=== PATIENT | female | born 1970 | race Caucasian/White ===

== ENCOUNTER 2019-06-30 00:32 | Day surgery (SDC) | payer OTHER, SELFPAY ==
[2019-06-13 13:32] VITALS: BMI 30.2
[2019-06-30] VITALS (7 sets, daily range): BP systolic 116–139; BP diastolic 77–84; PULSE 77–113; RESP 14–18; TEMP 36.2–36.6; O2SAT 95–99
--- NOTE | ~2019-06-30 | XR_ITS ---
EXAMINATION: XR hand LT min 3V DATE: 06/30/2019 09:35 INDICATION: Postoperative evaluation following surgery to the left first carpal metacarpal joint TECHNIQUE: Posteroanterior, oblique and lateral views of the left hand were obtained. COMPARISON: 04/21/2019 FINDINGS: Fiberglas splinting material along the radial side of the hand, wrist and distal forearm which obscur es fine bone and soft tissue detail. Interval resection of the trapezium likely for first carpometaca rpal suspension arthroplasty. No fracture. Alignment remains near-anatomic. Mild to moderate osteoart hritis at the remaining portion of the triscaphe joint. Additional mild osteoarthritis at several of the distal interphalangeal joints. IMPRESSION: 1. Expected appearance post left first carpal metacarpal suspension arthroplasty with trapezium resec tion. Reviewed, dictated and finalized at location A. WEB DEVELOPER IMPRESSION: 1. Expected appearance post left first carpal metacarpal suspension arthroplast y with trapezium resection.
[2019-06-30] MEDS: LACTATED RINGERS 1,000 ML 30 ML IV CONT ×2 (06:30→09:19)
--- NOTE | 2019-06-30 07:01 | P.PNAN_ITS ---
Anes - Initial Pre Proc Eval Procedure: Operation Date: 06/30/19 07:30 Proposed Procedures p Carpal Metacarpal Arthroplasty Left Thumb - Trevor Santos MD Date/Time: 06/30/19 07:01 Surgeon: Trevor Santos MD Pre Op Diagnosis: Thumb CMC arthritis left side Patient Data Age: 48 Gender: F Height: 5 ft 1 in Weight: 72.57 kg Allergies Allergy/AdvReac Type Severity Reaction Status Date / Time No Known Allergies Allergy Verified 06/13/19 13:31 Home Medications Medication Instructions Recorded Confirmed Type citalopram 20 mg tablet 20 mg PO DAILY 03/22/19 06/13/19 History fluticasone propionate 50 2 spray NASAL DAILY PRN 03/22/19 06/13/19 History mcg/actuation nasal spray,suspension solifenacin 5 mg tablet 5 mg PO DAILY 03/22/19 06/13/19 History ibuprofen [Motrin IB] 200 mg PO Q6H PRN 06/13/19 06/13/19 History Patient hx anesthesia problems: none Family hx anesthesia problems: none PMFSH Past Medical History Medical History Arthritis Depression Osteoarthritis Surgical History Surgical History H/O gynecological procedure Family History Family History Father Patient's father is in good health Grandparent Family history of malignant neoplasm of breast, Onset Age: 84 Diabetes mellitus Mother Family history of lupus erythematosus Social History Social History Smoking status: Never smoker Second hand tobacco smoke exposure: No Alcohol intake: current Gender identity (if verbalized by the patient): Female Anes - Eval Final PreProcedure Day of Procedure 06/30/19 07:01 Patient weight: overweight Heart: regular rate and rhythm Lungs: clear to auscultation Airway: Mallampati scale class II Neurological: alert and oriented Last oral intake: >/= 8 hours ASA classification: II Emergent: no Anesthetic plan: proceed Anesthesia type and monitoring: general LMA and standard monitoring Other findings: recent svt Informed Consent: The patient's anesthetic plan and its attendant risks and miguel efits were discussed with the patient/family/POA. Questions were solicited and answers provided to the satisfaction of the patient/family/POA.
--- NOTE | 2019-06-30 07:07 | WPDHPUPDATE1 ---
History and Physical Update Update Date/Time: 06/30/19 07:07 History and Physical has been reviewed, including an updated exam of the patient. There are NO changes in the patient's condition. Risks, benefits, and alternatives have been discussed and questions answered. Patient agrees to proceed with procedure.
[2019-06-30] MEDS: ceFAZolin 2 GM/D5W 50 ML 2 GM/50 ML BAG IVPB (07:37)
--- NOTE | 2019-06-30 07:41 | WPDANESPNB ---
Anes - Peripheral Nerve Block Date/Time: 06/30/19 07:41 I have discussed with the patient/family/POA the placement of a peripheral nerve block for post-operative pain management, including associated risks, benefits, complications, and side effects. Alternative methods of post-operative analgesia were detailed. Questions were solicited and answers provided to the satisfaction of the patient/family/POA. Time-Out: A pre-procedural Time-Out was completed immediately before starting the procedure and confirmed: Patient Identification, Site, Procedure, Patient Position and the Availability of Requisite Equipment. Clinical Indications: Acute post-operative pain management requested by the operative surgeon. Nerve Block Insertion Note Anes-nerve block: supraclavicular left Needle: 22 gauge, stimulating, insulated echogenic needle. Needle length: 50 mm Technique: nerve stimulation lost at (mA) (0.3) and ultrasound Injectate: bupivacaine 0.5% with epi 5 mcg/ml (30ml) Observations: tolerated well Complications: none Procedure start time:: 721 Procedure end time:: 729
[2019-06-30] MEDS: ceFAZolin SODIUM 1 GM VIAL IV PUSH (08:53)
--- NOTE | 2019-06-30 09:30 | P.OP_ITS ---
Procedure Note - Detailed Date of procedure: 06/30/19 Pre-op diagnosis: Thumb CMC arthritis left side Post-op diagnosis: same Procedure performed: Left thumb CMC suspension arthroplasty Description of procedure: The patient was identified proper site identified. In the preop holding area the anesthesia team performed a left upper extremity block. She was then taken to the operating room transferred here or table placing her supine taking care to pad her torso and extremities. After general anesthetic induction and intubation, a nonsterile tourniquet was placed high on the left arm. Left upper extremity was prepped and draped in usual sterile fashion. Extremity was exsanguinated and tourniquet was inflated to 200 mmHg remaining up for approximately 62 minutes. A longitudinal incision was made over the FCR tendon curving radially at the base of the thenar musculature. Subcutaneous tissue bluntly dissected protecting neurovascular structures. A slip of the APL which inserted into the thenar musculature was released and mar ked for later repair. The thenar musculature was elevated up off of the carpus and the trapezium identified. While protecting the FCR, a trapeziectomy was performed. The a ulnar-sided distally-based 8 cm slip of FCR was then developed hand used to create a sling weaving the tendon slip between the FCR tendon and the APL tendon securing it to itself with 3-0 Ethibond suture. The EPL tendon was advanced on itself and also secured with 3-0 Ethibond suture seating the sling in the trapeziectomy site. This allowed the thumb to sit very nicely in a position of function. The EPB tendon was then reefed also with 3-0 Ethibond taking up the slack in that structure. The wound was irrigated with sterile antibiotic solution. The wrist capsule and thenar musculature were tacked back down with 4-0 Monocryl. The slip of the EPL was reattached to the thenar musculature with 3-0 Ethibond. The skin is reapproximated with 4-0 Monocryl and 4-0 Prolene subcuticular stitch. Steri-Strips were applied. Sterile dressings applied and the tourniquet was released. Well-padded thumb spica splint was fashioned. The patient tolerated procedure well. She was awakened extubated and taken to recovery area in stable condition. There were no known intraoperative complications. Estimated blood loss was negligible. She received perioperative antibiotics. Anesthesia: AWILDAA Surgeon: Trevor Santos MD Territory Representative: [place] Estimated blood loss (mL): 1 Tourniquet time (min): 62 Drains: No Packing: No Pathology: none sent Complications: No immediate complications Condition: stable Disposition: PACU
--- NOTE | 2019-06-30 10:22 | SUR.PHASEI ---
0925 3 VIEWS OF XRAYS TAKEN OF LT HAND.
== END 2019-06-30 11:20 | disposition home or self-care (01) ==
PROVIDERS: PCP Internal Medicine; Visit Provider Orthopaedic Surgery
PROC: (CPT 25447; principal; 2019-06-30 07:30)
DX: M18.12 Unilateral primary osteoarthritis of first carpometacarpal joint, left hand (principal); F32.9 Major depressive disorder, single episode, unspecified
CPT/HCPCS: 25447; 73130; J0131; J0690; J1100; J2250; J2405; J2704; J3010; J7120

== ENCOUNTER 2019-10-10 08:00 | Outpatient (RCR) | payer OTHER, SELFPAY ==
--- NOTE | 2019-07-22 08:42 | OTOPEVAL ---
OCCUPATIONAL THERAPY INITIAL EVALUATION 07/22/2019 Thank you for referring this patient to [facility]. Yolanda will benefit from skilled hand therapy 2x/week for 4 weeks for deficits outlined below. Please review, sign, date and return this plan of care SUSANNAH. I agree with and certify that the following plan of care is medically necessary. Referring Physician Date Admitting Provider: Attending Provider: Trevor Santos MD Referring Provider: *OT Outpatient Evaluation Start: 07/22/19 07:28 Therapy Assessment Status Assessment Status Assessment Status Evaluation Outpatient Past Medical History Neurological History Hx Other Neurological Disorders Yes: FREQ. HEADACHES Cardiovascular History Hx Cardiac Disorders No Significant History Respiratory History Hx Respiratory Disorders No Significant History Gastrointestinal History Hx Gastrointestinal Disorders No Significant History Genitourinary History Hx Other Genitourinary Disorders Yes: OAB, SARAHY Musculoskeletal History Hx Arthritis Yes: OSTEO Hx Other Musculoskeletal Disorders Yes: LT THUMB CMC ARTHRITIS Hematological History Hx Hematological Disorders No Significant History Endocrine History Hx Endocrine Disorders No Significant History HEENT History Hx Sinus Problems Yes Hx Other HEENT Disorders Yes: GLASSES Integumentary History Hx Skin Disorders No Significant History Reproductive History Hx Abnormal Uterine Bleeding Yes: UTERINE ABLATION Hx Other Reproductive Disorders Yes: 2 ECTOPICS WITH OOPHORECTOMY AND SALPINGECTOMY Psychosocial History Hx Depression Yes: TAKES MED Pain History History of Any Previous or Ongoing No Significant History Instance of Pain Evaluation Information Diagnosis Left thumb CMC suspension arthroplasty Onset 06/30/19 Prior Level of Function Activity Level (Last 3 Months) 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 She has a at home to assist with some ADL tasks, as needed. She's returned to cooking and laundry. Her has been doing the cleaning. Pain Assessment Timing of Pain Assessment Timing of Pain Assessment Assessment Pain Scale Pain Scale Used Numeric (1 - 10) Self Report Pain Assessment Left Hand(s) Reported Pain Level 0 Pain Score Pain Score 0: Self Re
--- NOTE | 2019-08-18 16:04 | OTOPEVAL ---
OT RE-EVALUATION REPORT 08/18/2019 Thank you for referring Yolanda Ross to [facility]. Continued skilled OT indicated for the deficits described below. Plan to see Yolanda 1-2x/week for 6 weeks. Please review, sign, date and return this plan of care SUSANNAH. I agree with and certify that the following plan of care is medically necessary. Referring Physician Date Admitting Provider: Attending Provider: Trevor Santos MD Referring Provider: *OT Outpatient Re-Evaluation Evaluation Information Problem Diagnosis Left thumb CMC suspension arthroplasty Onset 06/30/19 Subjective Information Yolanda reports feeling improved Query Text:As Reported By Patient/ flexibility and comfort with Family AROM and PROM exercises. She continues to report stiffness in the thumb and fingers, but overall notes improvement in her ability to move. She is wearing the brace full time babysitter, except to exercise and bathe. She has been compliant with her HEP, completing AROM and PROM 4-6x/day. Pain Assessment Timing of Pain Assessment Timing of Pain Assessment Re-assessment Pain Scale Pain Scale Used Numeric (1 - 10) Self Report Pain Assessment Left Hand(s) Reported Pain Level 1 Pain Description Soreness Lowest Pain Intensity 1 Greatest Pain Intensity 5 Pain Score Pain Score 1: Self Report Upper Extremity Range of Motion Elbow/Forearm Range of Motion Left Forearm Supination - Active 80 Forearm Pronation - Active 90 Elbow/Forearm Range of Motion Comments supination improved from 75* Elbow flexion and extension is WNL. Wrist Range of Motion Left Wrist Flexion - Active 45 Wrist Flexion - Passive 55 Wrist Extension - Active 40 Wrist Extension - Passive 45 Wrist Radial Deviation - Active 15 Wrist Radial Deviation - Passive 20 Wrist Ulnar Deviation - Active 25 Wrist Ulnar Deviation - Passive 25 Wrist Range of Motion Comments flexion improved from 40* extension improved from 35* RD improved from 5* UD improved from 20* Finger Range of Motion Left Index Finger MCP Joint Flexion - Active 85 Index Finger Tip to Distal Palmar Crease 1 - Active Index Finger Tip to Base of Palm - 2 Active Middle Finger MCP Joint Flexion - Active 85 Middle Finger Tip to Distal Palmar 0 Crease - Active
--- NOTE | 2019-09-15 12:26 | PCOTNOTE ---
Patient called & cancelled scheduled appointment this date. No reason given.
--- NOTE | 2019-10-02 15:48 | OTOPEVAL ---
OCCUPATIONAL THERAPY RE-EVALUATION REPORT 10/02/2019 Thank you for referring Yolanda Ross to [facility]. Yolanda will benefit from continued skilled instruction on strengthening and progression of her HEP. Plan to continue 2x/week for 5 additional weeks and then assess for discharge with HEP in 5 weeks. Please review, sign, date and return this plan of care SUSANNAH. I agree with and certify that the following plan of care is medically necessary. Referring Physician Date Referring Provider: Trevor Santos MD *OT Outpatient Re-Evaluation Evaluation Information Problem Diagnosis Left thumb CMC suspension arthroplasty Onset 06/30/19 Additional Evaluation Detail Patient presents today for re- evaluation after 10 weeks of outpatient therapy. Strengthening was initiated last week. She did have a minor set back, which includes an episode of jamming her thumb when a baseball hit the tip of her thumb. She has some bruising to the base of the thumb and the nail, but structurally is intact. Subjective Information Yolanda reports feeling improved Query Text:As Reported By Patient/ strength and flexibiilty, Family which has allowed her to use the left hand without even thinking about it. She notes that she is less cautious with her left hand and is using it to drive, crepe sole scourer, pinch, and carry items. Just recently she was able to use the left thumb to unlock her car and pinch a chip clip. She continues to report stiffness in the thumb and fingers, but overall notes improvement in her ability to move. She has weaned off of the brace. She reports having soreness , but rarely has any pain . Pain Assessment Timing of Pain Assessment Timing of Pain Assessment Re-assessment Pain Scale Pain Scale Used Numeric (1 - 10) Self Report Pain Assessment Left Hand(s) Reported Pain Level 0 Lowest Pain Intensity 0 Greatest Pain Intensity 4 Pain Score Pain Score 0: Self Report Upper Extremity Range of Motion Elbow/Forearm Range of Motion Left Forearm Supination - Active
--- NOTE | 2019-10-15 15:26 | OTOPEVAL ---
OCCUPATIONAL THERAPY DISCHARGE NOTE 10/15/2019 Yolanda Ross called today to cancel the rest of her therapy per MD instruction due to x-ray today showing fracture at the base of the thumb's proximal phalanx from the baseball injury ~3 weeks ago. Thank you for referring Yolanda Ross to [facility]. Please review, sign, date and return this D/C Note SUSANNAH. I agree with and certify that the following plan of care is medically necessary. Referring Physician Date Referring Provider: Trevor Santos MD
== END 2019-10-16 08:08 | disposition home or self-care (01) ==
LOC: ANHOT 08:00
PROVIDERS: PCP Internal Medicine; Visit Provider Orthopaedic Surgery
DX: M18.12 Unilateral primary osteoarthritis of first carpometacarpal joint, left hand (principal)
CPT/HCPCS: 97018; 97035; 97110; 97140; 97165; 97530

== ENCOUNTER 2020-05-01 00:30 | Outpatient (CLI) | payer OTHER, SELFPAY ==
[2020-05-01 18:59] LABS: SARS-CoV-2 RNA PCR Negative
== END 2020-05-01 00:31 | disposition home or self-care (01) ==
LOC: ANHCOVIDDT 00:30
PROVIDERS: Internal Medicine Gastroenterology; PCP Internal Medicine; Visit Provider Surgery Plastic and Reconstructive Surgery
DX: Z01.818 Encounter for other preprocedural examination (principal); Z20.828 Contact with and (suspected) exposure to other viral communicable diseases
CPT/HCPCS: 87635; C9803; U0003

== ENCOUNTER → 2020-05-04 08:03 | Day surgery (SDC) | payer OTHER, SELFPAY ==
[2020-04-27 15:03] VITALS: BMI 30.2
--- NOTE | 2020-05-03 09:39 | WPDANESEPPF ---
Anes - Initial Pre Proc Eval Procedure: Operation Date: 05/04/20 08:30 Proposed Procedures p Screening Colonoscopy - Andrzej Escobar MD Date/Time: 05/03/20 09:39 Surgeon: Andrzej Escobar MD Pre Op Diagnosis: neoplasm screening Patient Data Age: 49 Gender: F Height: 1.57 m Weight: 75 kg Allergies Allergy/AdvReac Type Severity Reaction Status Date / Time No Known Allergies Allergy Verified 05/04/20 07:05 Home Medications Medication Instructions Recorded Confirmed Type citalopram 20 mg tablet 20 mg PO DAILY 03/22/19 04/28/20 History ibuprofen [Motrin IB] 200 mg PO Q6H PRN 06/13/19 04/28/20 History fluticasone propionate 50 2 spray NASAL DAILY PRN #15.8 ml 12/23/19 04/28/20 Rx mcg/actuation nasal spray,suspension peg 3350-electrolytes 236 240 ml PO Q10M #4000 ml 02/17/20 04/28/20 Rx gram-22.74 gram-6.74 gram-5.86 gram solution celecoxib 200 mg capsule 200 mg PO DAILY #30 cap 02/25/20 04/28/20 Rx Patient hx anesthesia problems: none Family hx anesthesia problems: none PMFSH Past Medical History Medical History (Updated 04/28/20 @ 15:42 by Trevor Santos MD) Arthritis Arthritis of carpometacarpal (CMC) joint of right thumb BMI 27.0-27.9,adult BMI 30.0-30.9,adult Depression Osteoarthritis Surgical History Surgical History (Updated 04/28/20 @ 15:42 by Trevor Santos MD) CMC arthritis, thumb, degenerative Suspension arthroplasty left thumb June 2019 H/O gynecological procedure Family History Family History Father Patient's father is in good health Grandparent Family history of malignant neoplasm of breast, Onset Age: 84 Diabetes mellitus Mother Family history of lupus erythematosus Cancer of uterus Social History Social History Smoking status: Never smoker Second hand tobacco smoke exposure: No Alcohol intake: current Substance use: unknown Substance use type: does not use Living arrangements: with family Gender identity (if verbalized by the patient): Female Spiritual care concerns: No Anes - Eval Final PreProcedure Day of Procedure 05/03/20 09:39 Patient weight: obese Heart: regular rate and rhythm Lungs: clear to auscultation and normal air movement Airway: Mallampati scale class II Neurological: alert and oriented Last oral intake: >/= 8 hours ASA classification: II Emergent: no Anesthetic plan: proceed Anesthesia type and monitoring: general GIVS and standard monitoring Informed Consent: The patient's anesthetic plan and its attendant risks and benefits were discussed with the patient/family/POA. Questions were solicited and answers provided to the satisfaction of the patient/family/POA.
[2020-05-04 07:06] VITALS: BP 128/87; RESP 22; TEMP 36.6; O2SAT 100; BMI 29.7
[2020-05-04] MEDS: LACTATED RINGERS 1,000 ML 150 ML IV CONT (07:25)
--- NOTE | 2020-05-04 08:26 | PM.HPGS ---
History of Present Illness History of Present Illness Consent: Risks, benefits, and alternatives have been discussed and questions answered. Patient agrees to proceed with procedure. Chief complaint: neoplasm screening Narrative: Yolanda Ross is a 49 year old female here for first screening colonoscopy Review of Systems Constitutional: Constitutional: Denies headache(s) and Denies weakness Eyes: Eyes: Denies blurry vision ENT: Reports Normal hearing present, Denies headache(s) and Denies neck pain Cardiovascular: Cardiovascular: Denies chest pain and Denies dyspnea Respiratory: Respiratory: Denies dyspnea Gastrointestinal: Gastrointestinal: Reports no additional gastrointestinal complaints Genitourinary: Genitourinary: Denies dysuria Musculoskeletal: Musculoskeletal: Denies neck pain Integumentary/Breasts: Skin/Breast: Denies dry skin Neurologic: Reports Normal hearing present, Denies headache(s) and Denies weakness Psychiatric: Psychiatric: Denies anxiety Endocrine: Endocrine: Denies change in body appearance Hematologic/Lymphatic: Hematologic/Lymphatic: Denies easy bleeding Allergic/Immunologic: Allergic/Immunologic: Denies urticaria PMF Past Medical History Medical History (Updated 05/04/20 @ 08:27 by Andrzej Escobar MD) Arthritis Arthritis of carpometacarpal (CMC) joint of right thumb BMI 27.0-27.9,adult BMI 30.0-30.9,adult Colon cancer screening Depression Osteoarthritis Surgical History Surgical History (Updated 04/28/20 @ 15:42 by Trevor Santos MD) CMC arthritis, thumb, degenerative Suspension arthroplasty left thumb June 2019 H/O gynecological procedure Family History Family History Father Patient's father is in good health Grandparent Family history of malignant neoplasm of breast, Onset Age: 84 Diabetes mellitus Mother Family history of lupus erythematosus Cancer of uterus Social History Social History Smoking status: Never smoker Second hand tobacco smoke exposure: No Alcohol intake: current Substance use: unknown Substance use type: does not use Living arrangements: with family Gender identity (if verbalized by the patient): Female Spiritual care concerns: No Meds Home Medications and Allergies Home Medications Medication Instructions Recorded Confirmed Type citalopram 20 mg tablet 20 mg PO DAILY 03/22/19 04/28/20 History ibuprofen [Motrin IB] 200 mg PO Q6H PRN 06/13/19 04/28/20 History fluticasone propionate 50 2 spray NASAL DAILY PRN #15.8 ml 12/23/19 04/28/20 Rx mcg/actuation nasal spray,suspension peg 3350-electrolytes 236 240 ml PO Q10M #4000 ml 02/17/20 04/28/20 Rx gram-22.74 gram-6.74 gram-5.86 gram solution celecoxib 200 mg capsule 200 mg PO DAILY #30 cap 02/25/20 04/28/20 Rx Allergies Allergy/AdvReac Type Severity Reaction Status Date / Time No Known Allergies Allergy Verified 05/04/20 07:05 Vital Signs Vital Signs - 24 hr 05/04/20 07:06 Temperature 97.8 F Respiratory Rate 22 H Blood Pressure 128/87 Pulse Oximetry 100 Exam Const: General: comfortable and no acute distress HENMT: General nose exam: Normal nares present Eyes: General: appearance normal, both eyes and all related structures Neck: Neck: no JVD Resp: Auscultation: clear to auscultation bilaterally Cardio: Rate: regular rate Rhythm: regular rhythm GI: Inspection: non-distended GI Palp: Yes Soft to palpation Skin: General skin exam: normal color Neuro: General: gait normal Speech: normal speech Extrem: General: normal to inspection Psych: Mental Status: mental status grossly normal Assessment and Plan Assessment and plan (1) Colon cancer screening: Code(s): Z12.11 - Encounter for screening for malignant neoplasm of colon Status: Acute Assessment and Plan: w
[2020-05-04 08:45] VITALS: BP 121/80; PULSE 97; RESP 19; O2SAT 97
[2020-05-04 08:55] VITALS: BP 116/77; PULSE 81; RESP 18; O2SAT 98
[2020-05-04 09:05] VITALS: BP 116/77; PULSE 81; RESP 18; O2SAT 98
[2020-05-04 09:10] VITALS: BP 115/74; PULSE 92; RESP 18; O2SAT 98
== END ==
PROVIDERS: PCP Internal Medicine; Visit Provider Internal Medicine Gastroenterology
PROC: 0DJD8ZZ Inspection of Lower Intestinal Tract, Via Natural or Artificial Opening Endoscopic (ICD-10-PCS; CPT 45378; principal; 2020-05-04 08:30)
DX: Z12.11 Encounter for screening for malignant neoplasm of colon (principal); K57.30 Diverticulosis of large intestine without perforation or abscess without bleeding; K64.8 Other hemorrhoids; F32.9 Major depressive disorder, single episode, unspecified; M18.11 Unilateral primary osteoarthritis of first carpometacarpal joint, right hand; E66.9 Obesity, unspecified; Z68.29 Body mass index [BMI] 29.0-29.9, adult
CPT/HCPCS: 45378; C9803; J2704; J7120; U0003

== ENCOUNTER 2020-11-30 08:57 | Outpatient (CLI) | payer OTHER, SELFPAY ==
--- NOTE | ~2020-11-30 | MM_ITS ---
EXAMINATION: MM screening [facility] BI w eber HISTORY: Screening TECHNIQUE: Craniocaudal and mediolateral oblique 3-D tomosynthesis images were obtained and synthetic 2-D images were generated. CAD analysis was submitted and interpreted. COMPARISON: Comparison to multiple prior studies sequentially, with oldest reviewed study dated 11/26. BREAST PARENCHYMAL COMPOSITION: There are scattered areas of fibroglandular density. FINDINGS: There is no evidence of suspicious mass, calcification, or architectural distortion to sugg est malignancy in either breast. There has been no suspicious interval change. IMPRESSION: 1. No mammographic evidence of malignancy. 2. Recommend routine screening mammography in one year. BI-RADS Category 1: Negative Reviewed, dictated and finalized at location A.
== END 2020-11-30 08:58 | disposition home or self-care (01) ==
PROVIDERS: PCP Internal Medicine; Visit Provider Obstetrics & Gynecology
DX: Z12.31 Encounter for screening mammogram for malignant neoplasm of breast (principal)
CPT/HCPCS: 77063; 77067

== ENCOUNTER 2021-03-07 13:25 | Emergency (ER) | payer OTHER, SELFPAY ==
--- NOTE | ~2021-03-07 | XR_ITS ---
EXAMINATION: XR wrist RT min 3V DATE: 03/07/2021 13:48 INDICATION: Right wrist injury and pain. TECHNIQUE: 4 views of right wrist were obtained. COMPARISON: Right hand radiographs 04/28/2020 FINDINGS: Bone alignment is normal. No fracture. There is mild osteoarthritis of first carpometacarpa l joint. IMPRESSION: 1. Mild osteoarthritis of first carpometacarpal joint. Reviewed, dictated and finalized at location A.
[2021-03-07 13:32] VITALS: BP 139/89; PULSE 81; RESP 16; TEMP 36.8; O2SAT 100
[2021-03-07 13:43] VITALS: BP 139/89; PULSE 81; RESP 16; TEMP 36.8; O2SAT 100
--- NOTE | 2021-03-07 13:44 | ED.UPPEXIN ---
HPI - Extremity Injury (Upper) General Chief Complaint: Extremity Injury, Upper Stated Complaint: Pain in right wrist. Source: patient and RN notes reviewed Mode of arrival: ambulatory Limitations: no limitations History of Present Illness HPI narrative: Patient is a 50-year-old female patient who ambulated into the [facility]. Patient states she has arthritis in her right thum treated by Dr. Santos. Roght thumb was injected by Dr. Santos in November. She has had increased pain for the last 4 weeks after twisting injury. Patient states a few days ago she was playing basketball with her son and the ball hit her in the right thumb. She does have an appointment with Dr. Santos on March 15.Patient states she is struggling to sleep secondary to the right thumb pain. Related Data Home Medications Medication Instructions Recorded Confirmed citalopram 20 mg tablet 20 mg PO DAILY 03/22/19 03/07/21 solifenacin 10 mg PO DAILY 03/07/21 03/07/21 Allergies Allergy/AdvReac Type Severity Reaction Status Date / Time No Known Allergies Allergy Verified 03/07/21 13:42 Review of Systems Review of Systems: CONSTITUTIONAL: Denies body aches, fever, chills, or sweats. EYES: Denies visual changes, redness, or discharge. ENT: Denies rhinorrhea, congestion, sore throat, or otalgia. CARDIOVASCULAR: Denies chest pain, palpitations, or edema. RESPIRATORY: Denies cough or dyspnea. GASTROINTESTINAL: Denies abdominal pain, nausea, vomiting, or diarrhea. GENITOURINARY: Denies dysuria or hematuria. SKIN: Denies rash, itching, or wounds. MUSCULOSKELETAL: Denies back pain,+ right thumb pain NEUROLOGIC: Denies headache, numbness, tingling, or weakness. PSYCH: Denies depression or anxiety. All systems reviewed & are unremarkable except as noted in HPI and below PMFSH Past Medical History Medical History Arthritis Arthritis of carpometacarpal (CMC) joint of right thumb BMI 27.0-27.9,adult BMI 30.0-30.9,adult Colon cancer screening Depression Osteoarthritis Surgical History Surgical History CMC arthritis, thumb, degenerative Suspension arthroplasty left thumb June 2019 H/O gynecological procedure Family History Family History Father Patient's father is in good health Grandparent Family history of malignant neoplasm of breast, Onset Age: 84 Diabetes mellitus Mother Family history of lupus erythematosus Cancer of uterus Social History Social History Smoking status: Never smoker Second hand tobacco smoke exposure: No Alcohol intake: current Alcohol use details: rarely Substance use: unknown Substance use type: does not use Gender identity (if verbalized by the patient): Female Spiritual care concerns: No Exam Narrative: GENERAL: Well-appearing, well-nourished, and in no acute distress. HEAD: Normocephalic, atraumatic. EYES: EOMI. No redness or drainage. Conjunctivae normal. ENT: Mucous membranes pink and moist. Nares clear. No rhinorrhea. NECK: Normal AROM. Supple. MUSCULOSKELETAL: No bony tenderness; minimal edema to right thumb MCP joint; ROM to right thumb normal. EXTREMITIES: Normal range of motion. No edema. SKIN: Warm, dry, no rash. Capillary refill normal. Normal skin turgor. NEURO: No focal deficits. Alert and oriented x3. Gait steady. PSYCH: Normal affect. No signs of depression or anxiety. Course Vital Signs Vital signs: Vital Signs Temperature 36.8 C 03/07/21 13:32 Pulse Rate 81 03/07/21 13:32 Respiratory Rate 16 03/07/21 13:32 Blood Pressure 139/89 03/07/21 13:32 Pulse Oximetry 100 03/07/21 13:32 Temperature 36.8 C 03/07/21 13:43 Pulse Rate 81 03/07/21 13:43 Respiratory Rate 16 03/07/21 13:43 Blood Pressure 139/89
== END 2021-03-07 14:16 | disposition home or self-care (01) ==
PROVIDERS: Emergency Provider Nurse Practitioner Family; PCP Internal Medicine
DX: M18.11 Unilateral primary osteoarthritis of first carpometacarpal joint, right hand (principal); F32.A Depression, unspecified
CPT/HCPCS: 73110; 99213; G0463

== ENCOUNTER 2022-07-13 08:07 | Outpatient (CLI) | payer OTHER, SELFPAY ==
--- NOTE | ~2022-07-13 | MM_ITS ---
EXAMINATION: MM screening shan BI w eber HISTORY: Screening mammogram TECHNIQUE: Craniocaudal and mediolateral oblique 3-D tomosynthesis images were obtained and synthetic 2-D images were generated. CAD analysis was submitted and interpreted. COMPARISON: 11/30/2020, 04/18/2017, 03/27/2016 bilateral screening mammogram examinations BREAST PARENCHYMAL COMPOSITION: The breasts are heterogeneously dense, which may obscure small masses . FINDINGS: Scattered bilateral benign calcifications. There is no evidence of suspicious mass, calcifi cation, or architectural distortion to suggest malignancy in either breast. There has been no suspici ous interval change. IMPRESSION: 1. No mammographic evidence of malignancy. 2. Recommend routine screening mammography in one year. BI-RADS Category 1: Negative Reviewed, dictated and finalized at location A. LE MACHINE OPERATOR
== END 2022-07-13 08:08 | disposition home or self-care (01) ==
PROVIDERS: PCP Internal Medicine; Visit Provider Obstetrics & Gynecology
DX: Z12.31 Encounter for screening mammogram for malignant neoplasm of breast (principal)
CPT/HCPCS: 77063; 77067

== ENCOUNTER 2022-10-23 00:34 | Day surgery (SDC) | payer OTHER, SELFPAY ==
[2022-10-17 12:11] VITALS: BMI 31.1
--- NOTE | 2022-10-17 12:19 | PC.NURSE ---
Report to the Outpatient Waiting Room, entrance under the green pavilion located off [facility], at time 0900 on date 10/23/22. Planned Procedure Time: 1100. Time changes happen often and if your time is changed the preop area will call you the afternoon before. - You and your visitor will be asked to self-screen and do not enter if you have any COVID symptoms. - A mask is optional within the hospital at this time. Patients may have clear liquids (water, carbonated beverages, clear teas, apple juice) until 3 hours prior to surgery with a maximum of 20 ounces. - No food from midnight until time of surgery Take the following medications with a SIP of water the morning of surgery: CITALOPRAM DO NOT STOP ANY OF YOUR OTHER PRESCRIPTION MEDICATIONS PRIOR TO SURGERY ?EXCEPT THE FOLLOWING Medications to discontinue per physician: N/A Date to take last dose: N/A Please no make-up, nail portuguese, hairspray, perfume, deodorant, or body powder the day of surgery. No jewelry (including any body piercings) or valuables the day of surgery, leave them at home. Please take a shower or bath the night before, or the morning of, surgery with an antibacterial soap. Wear comfortable, loose fitting clothing. - Jewelry must be removed prior to entering the operating room. Rings and piercings that are not removed may be cut off. - The hospital will not accept responsibility for valuables. - Please leave all valuables, including medications, at home the day of surgery. If you are going home after surgery, a licensed tractor sweeper driver must drive you home. - NO public transportation without another adult if you receive anesthesia. - We recommend that an adult stay with you for 24 hours following discharge. - We also recommend that you do not drive, make important decision, drink alcoholic beverages, or take any drugs that were not prescribed by your health care provider for at least 24 hours after your discharge time. Follow any additional instructions given to you from your surgeon. If you or anyone in your household have experienced Covid symptoms in the past week, please notify your surgeon or the nurse liaison at the phone number below for possible testing. Telephone instructions given to PT - CARLOS ALBERTO LOTT and asked if any additional questions and then verbalized understanding. Patient advised to call surgeon office or pre surgery nurse liaison [phone] if any additional questions.
--- NOTE | ~2022-10-23 | XR_ITS ---
EXAM: XR hand RT min 3V DATE: 10/23/2022 17:13 HISTORY: POSTOP RT HAND PER DR JHA . COMPARISON: None available. FINDINGS: Osseous detail limited by overlying cast material. Interval trapezium resection. Soft tiss ue swelling of the wrist and hand. No unexpected radiopaque foreign body. IMPRESSION: Status post trapezium resection. Reviewed, dictated and finalized at location K.
--- NOTE | 2022-10-23 07:26 | WPDANESEPPF ---
Anes - Initial Pre Proc Eval Procedure: Operation Date: 10/23/22 14:00 Proposed Procedures p Right Thumb Carpal Metacarpal Arthroplasty - Trevor Santos MD Date/Time: 10/23/22 07:26 Surgeon: Trevor Santos MD Pre Op Diagnosis: right thumb CMC arthritis Patient Data Age: 52 Gender: F Height: 1.57 m Weight: 77.15 kg Allergies Allergy/AdvReac Type Severity Reaction Status Date / Time No Known Allergies Allergy Verified 10/17/22 15:16 Home Medications Medication Instructions Recorded Confirmed Type citalopram 20 mg tablet 20 mg PO DAILY 03/22/19 10/17/22 History solifenacin 10 mg tablet 10 mg PO DAILY 03/07/21 10/17/22 History ibuprofen 200 mg tablet 200 mg PO Q6H PRN Pain 03/21/22 10/17/22 History fluticasone propionate 50 2 spray intranasal DAILY PRN nasal 06/19/22 10/17/22 Rx mcg/actuation nasal congestion #15.8 mL spray,suspension Patient hx anesthesia problems: none Family hx anesthesia problems: none Results Review: All pre-operative results and documents have been reviewed as part of the pre-operative evaluation. [facility] Past Medical History Medical History (Updated 10/23/22 @ 07:28 by Kiko Aaron DO) Anxiety Arthritis Arthritis of carpometacarpal (CMC) joint of right thumb BMI 27.0-27.9,adult BMI 30.0-30.9,adult Colon cancer screening Depression Osteoarthritis Scoliosis Surgical History Surgical History CMC arthritis, thumb, degenerative Suspension arthroplasty left thumb June 2019 H/O gynecological procedure Family History Family History Father Patient's father is in good health Grandparent Family history of malignant neoplasm of breast, Onset Age: 84 Diabetes mellitus Mother Family history of lupus erythematosus Cancer of uterus Social History Social History Smoking status: Never smoker Second hand tobacco smoke exposure: No Alcohol intake: current Alcohol use details: VERY RARE Substance use: never Substance use type: does not use Lack of Transportation: No Lack of Food: Never True Current Housing: I Have Housing Concerned About Future Housing: No Difficulty Paying Gas/Electric Bills: No Difficulty Paying for Meds: No Currently Unemployed: No Education: High School Diploma/GED Difficulty w/ Childcare or Family Care: No Living arrangements: with family Gender identity (if verbalized by the patient): Female Spiritual care concerns: No Anes - Eval Final PreProcedure Day of Procedure 10/23/22 07:26 Patient weight: obese Heart: regular rate and rhythm Lungs: clear to auscultation Airway: Mallampati scale class II Neurological: alert and oriented Last oral intake: >/= 8 hours ASA classification: II Emergent: no Anesthetic plan: proceed Anesthesia type and monitoring: general LMA and standard monitoring Results Review: All pre-operative results and documents have been reviewed as part of the pre-operative evaluation. Informed Consent: The patient's anesthetic plan and its attendant risks and benefits were discussed with the patient/family/POA. Questions were solicited and answers provided to the satisfaction of the patient/family/POA.
[2022-10-23 12:48] VITALS: BP 130/83; PULSE 69; RESP 16; TEMP 36.5; O2SAT 100
[2022-10-23] MEDS: LACTATED RINGERS 1,000 ML 30 ML IV CONT ×2 (13:24→16:33)
[2022-10-23] MEDS: ACETAMINOPHEN 500 MG TABLET 1000 MG PO (13:24)
[2022-10-23] MEDS: KETOROLAC 15 MG/ML VIAL (*BKC) IV PUSH (13:25)
--- NOTE | 2022-10-23 13:36 | WPDANESPNB ---
Anes - Peripheral Nerve Block Date/Time: 10/23/22 13:36 I have discussed with the patient/family/POA the placement of a peripheral nerve block for post-operative pain management, including associated risks, benefits, complications, and side effects. Alternative methods of post-operative analgesia were detailed. Questions were solicited and answers provided to the satisfaction of the patient/family/POA. Time-Out: A pre-procedural Time-Out was completed immediately before starting the procedure and confirmed: Patient Identification, Site, Procedure, Patient Position and the Availability of Requisite Equipment. Clinical Indications: Acute post-operative pain management requested by the operative surgeon. Nerve Block Insertion Note Anes-nerve block: supraclavicular right Patient position: supine Skin prep: chlorhexidine Needle: 22 gauge, stimulating, insulated echogenic needle. Needle length: 50 mm Technique: ultrasound Injectate: bupivacaine 0.5% with epi 5 mcg/ml (30cc- no epi) Observations: tolerated well Complications: none Procedure start time:: 1443 Procedure end time:: 144
--- NOTE | 2022-10-23 14:18 | WPDHPUPDATE1 ---
History and Physical Update Update Date/Time: 10/23/22 14:18 History and Physical has been reviewed, including an updated exam of the patient. There are NO changes in the patient's condition. Risks, benefits, and alternatives have been discussed and questions answered. Patient agrees to proceed with procedure.
[2022-10-23] MEDS: ceFAZolin 2 GM/D5W 50 ML 2 GM/50 ML BAG IVPB (14:57)
[2022-10-23 16:33] VITALS: BP 110/74; PULSE 97; RESP 16; TEMP 36.4; O2SAT 98
--- NOTE | 2022-10-23 16:35 | W.PM.PROC2 ---
Procedure Note - Detailed Date of Procedure 10/23/22 Pre-op Diagnosis right thumb CMC arthritis Post-op Diagnosis Same Procedure Performed right thumb CMC suspension arthroplasty Surgeon Trevor Santos MD Anesthesia General and Regional Description of Procedure The patient was identified proper site identified. In the preop holding area the anesthesia team performed a right upper extremity block. She was then taken to the operating room transferred to the OR table placing her supine taking care to pad the torso and extremities. After general anesthetic induction and intubation, a nonsterile tourniquet was placed high on the right arm. Right upper extremity was prepped and draped in usual sterile fashion. Extremity was exsanguinated and tourniquet was inflated to 200 mmHg remaining up for approximately 57 minutes. A longitudinal incision was made over the FCR tendon curving radially at the base of the thenar musculature. Subcutaneous tissue bluntly dissected protecting neurovascular structures. A slip of the APL which inserted into the thenar musculature was released and marked for later repair. The thenar musculature was elevated up off of the carpus and the trapezium identified. While protecting the FCR, a trapeziectomy was performed. The a ulnar-sided distally-based 8 cm slip of FCR was then developed hand used to create a sling weaving the tendon slip between the FCR tendon and the APL tendon securing it to itself with 3-0 Ethibond suture. The EPL tendon was advanced on itself and also secured with 3-0 Ethibond suture seating the sling in the trapeziectomy site. This allowed the thumb to sit very nicely in a position of function. The EPB tendon was then reefed also with 3-0 Ethibond taking up the slack in that structure. The wound was irrigated with sterile antibiotic solution. The wrist capsule and thenar musculature were tacked back down with 4-0 Monocryl. The slip of the EPL was reattached to the thenar musculature with 3-0 Ethibond. skin edges reapproximated with 4-0 Monocryl and 4-0 Prolene subcuticular stitch. Steri-Strips were applied. Sterile dressings applied and the tourniquet was released. Well-padded thumb spica splint was fashioned. The patient tolerated procedure well . [] was awakened extubated and taken to recovery area in stable condition. There were no known intraoperative complications. Estimated blood loss was negligible. Perioperative antibiotics were administered. Estimated Blood Loss 2 Tourniquet Time 57 Drains No Packing No Pathology None sent Complications No immediate complications Condition Stable Disposition PACU [facility] Billing Surgery - Charge Forward: Surgery Billing ([id number])
[2022-10-23 16:45] VITALS: BP 122/70; PULSE 76; RESP 13; O2SAT 99
[2022-10-23 17:00] VITALS: BP 121/83; PULSE 78; RESP 15; O2SAT 95
--- NOTE | 2022-10-23 17:07 | SUR.PHASEI ---
1707 xrays of right hand done.
[2022-10-23 17:14] VITALS: BP 152/78; PULSE 71; RESP 18
[2022-10-23 17:40] VITALS: BP 123/73; PULSE 61; RESP 18
[2022-10-23] MEDS: oxyCODONE HCL (*CRX) 5 MG TAB IR PO (18:00)
== END 2022-10-23 18:01 | disposition home or self-care (01) ==
PROVIDERS: PCP Internal Medicine; Visit Provider Orthopaedic Surgery
PROC: (CPT 25447; principal; 2022-10-23 14:00)
DX: M18.11 Unilateral primary osteoarthritis of first carpometacarpal joint, right hand (principal); G89.18 Other acute postprocedural pain; F41.9 Anxiety disorder, unspecified; F32.A Depression, unspecified; E66.9 Obesity, unspecified; Z68.31 Body mass index [BMI] 31.0-31.9, adult
CPT/HCPCS: 25447; 64415; 73130; A4565; A9270; J0690; J1100; J1885; J2250; J2405; J2704; J3010; J7120

== ENCOUNTER 2023-10-15 08:25 | Outpatient (CLI) | payer OTHER, SELFPAY ==
--- NOTE | ~2023-10-15 | MM_ITS ---
EXAMINATION: MM screening shan BI w beer HISTORY: Screening TECHNIQUE: Craniocaudal and mediolateral oblique 3-D tomosynthesis images were obtained and synthetic 2-D images were generated. CAD analysis was submitted and interpreted. COMPARISON: Comparison to multiple prior studies sequentially, with oldest reviewed study dated 01/08. BREAST PARENCHYMAL COMPOSITION: Dense: The breasts are heterogeneously dense, which may obscure small masses FINDINGS: There is a developing focal asymmetry in the upper outer quadrant of the left breast, middl e third. The right breast is stable without evidence for malignancy. IMPRESSION: 1. Developing left breast asymmetry. 2. Additional mammographic views and possible breast ultrasound are recommended. BI-RADS Category 0: Incomplete: Needs additional imaging evaluation. Reviewed, dictated and finalized at location B. IMPRESSION: 1. Developing left breast asymmetry. 2. Additional mammographic views and possible breast ultrasound are recommended . BI-RADS Category 0: Incomplete: Needs additional imaging evaluation.
== END 2023-10-15 08:26 | disposition home or self-care (01) ==
LOC: ANHIMG 08:30
PROVIDERS: PCP Family Medicine; Visit Provider Obstetrics & Gynecology
DX: Z12.31 Encounter for screening mammogram for malignant neoplasm of breast (principal); R92.8 Other abnormal and inconclusive findings on diagnostic imaging of breast
CPT/HCPCS: 77063; 77067

== ENCOUNTER 2023-10-31 12:54 | Outpatient (CLI) | payer OTHER, SELFPAY ==
--- NOTE | ~2023-10-31 | MMUS_ITS ---
EXAMINATION: MM diagnostic shan LT w eber, US breast LT complete HISTORY: Follow-up left breast asymmetry TECHNIQUE: Additional 3-D tomosynthesis images of the left breast were performed and synthetic 2-D im ages were generated. CAD analysis was submitted and interpreted. High resolution complete left breast ultrasound was performed. COMPARISON: Comparison to multiple prior studies sequentially, with oldest reviewed study dated 02/13. BREAST PARENCHYMAL COMPOSITION: Dense: The breasts are heterogeneously dense, which may obscure small masses FINDINGS: MAMMOGRAPHIC FINDINGS: There are persistent asymmetries in the upper outer quadrant of the left breast. There are benign lef t breast calcifications. No architectural distortion. No skin thickening. ULTRASOUND: Complete US of all 4 quadrants of the left breast and retroareolar region was reviewed. At 1:00, 7 cm from the nipple, there is a bilobed partially cystic mass measuring 9 x 7 x 3 mm without internal va scularity or posterior features. There is parallel orientation. At 1:00, 7 cm from the nipple, there is parallel oriented circumscribed hypoechoic mass with low level internal echoes, posterior acoustic enhancement and no internal vascularity measuring 8 mm. At 1:00, 1 cm from the nipple, there is a 7 mm complicated cyst. At 2:00, 4 cm from the nipple, there is a parallel oriented hypoechoic mass sg uring 8 mm, likely benign. At 3:00 there is a 5 mm cyst. At 4:00, 3 cm from the nipple, there is a 4 mm cyst. IMPRESSION: 1. Probable benign left breast masses by ultrasound. 2. Recommend 6 month follow-up diagnostic left mammogram and left breast ultrasound BI-RADS category 3, probably benign findings. Reviewed, dictated and finalized at location B. IMPRESSION: 1. Probable benign left breast masses by ultrasound. 2. Recommend 6 month follow-up diagnostic left mammogram and left breast ultras ound BI-RADS category 3, probably benign findings.
== END 2023-10-31 12:55 | disposition home or self-care (01) ==
PROVIDERS: PCP Family Medicine; Visit Provider Obstetrics & Gynecology
DX: R92.8 Other abnormal and inconclusive findings on diagnostic imaging of breast (principal)
CPT/HCPCS: 76641; 77061; 77065; G0279

== ENCOUNTER 2024-05-28 15:56 | Outpatient (CLI) | payer OTHER, SELFPAY ==
--- NOTE | ~2024-05-28 | XR_ITS ---
XR shoulder RT min 2V 05/28/2024 16:41 Indication: Right shoulder pain Procedure: 4 views right shoulder Comparison: No prior studies for comparison. Findings: No fracture, subluxation or dislocation. No significant soft tissue abnormality. No foreign bodies. There is mild polyarticular osteoarthritis. Impression: 1: Mild polyarticular osteoarthritis. Reviewed, dictated and finalized at location A. OR FUND ACCOUNTANT Impression: 1: Mild polyarticular osteoarthritis.
== END 2024-05-28 15:57 | disposition home or self-care (01) ==
LOC: GOSHIMG 15:56
PROVIDERS: PCP Family Medicine; Visit Provider Nurse Practitioner Family
DX: M19.011 Primary osteoarthritis, right shoulder (principal)
CPT/HCPCS: 73030

== ENCOUNTER 2024-06-02 12:16 | Outpatient (CLI) | payer OTHER, SELFPAY ==
--- NOTE | ~2024-06-02 | MMUS_ITS ---
EXAMINATION: MM diagnostic shan LT w eber, US breast LT limited HISTORY: Comparison to multiple prior studies sequentially, with oldest reviewed study dated 016. TECHNIQUE: Additional 3-D tomosynthesis images of left breast were performed and synthetic 2-D images were generated. CAD analysis was submitted and interpreted. High resolution Limited left breast ultr asound was performed. COMPARISON: Comparison to multiple prior studies sequentially, with oldest reviewed study dated 03/14. BREAST PARENCHYMAL COMPOSITION: Dense: The breasts are heterogeneously dense, which may obscure small masses FINDINGS: MAMMOGRAPHIC FINDINGS: The left breast is stable without evidence for malignancy. No new masses, calcifications or data analytics architect ural distortion. ULTRASOUND: Limited left breast ultrasound: There are multiple simple and minimally complicated cyst of the left breast. At 1:00, 7 cm from the nipple there is a stable oval hypoechoic parallel oriented mass measur ing 8 mm without internal vascularity or posterior features. At 3:00, 3 cm from the nipple there is a n oval hypoechoic 5 mm mass which appears to have changed slightly in morphology with irregular later al margins. IMPRESSION: 1. Altered morphology of 5 mm mass in the left breast at 3:00, 3 cm from the nipple. 2. Ultrasound-guided left breast biopsy recommended. BI-RADS category 4, suspicious findings. Reviewed, dictated and finalized at location A. NITIES DEPARTMENT CHAIR IMPRESSION: 1. Altered morphology of 5 mm mass in the left breast at 3:00, 3 cm from the ni pple. 2. Ultrasound-guided left breast biopsy recommended. BI-RADS category 4, suspicious findings.
== END 2024-06-02 12:17 | disposition home or self-care (01) ==
PROVIDERS: PCP Family Medicine; Visit Provider Obstetrics & Gynecology
DX: R92.8 Other abnormal and inconclusive findings on diagnostic imaging of breast (principal); N63.25 Unspecified lump in the left breast, overlapping quadrants
CPT/HCPCS: 76642; 77061; 77065; G0279

== ENCOUNTER 2024-06-26 08:05 | Outpatient (CLI) | payer OTHER, SELFPAY ==
--- NOTE | ~2024-06-26 | MMUS_ITS ---
US breast biopsy LT w image, MM post biopsy diagnostic LT EXAMINATION: US GUIDED NEEDLE BIOPSY WITH VACUUM ASSISTANCE DATE: 06/26/2024 11:30 OPERATIONS RECRUITER INDICATION: Left breast mass seen on prior examination. Ultrasound-guided core biopsy is requested t o evaluate for malignancy. TECHNIQUE AND FINDINGS: The risks and potential benefits of the procedure were discussed with the patient, and written inform ed consent was obtained. After sterile preparation of the left breast, 1% lidocaine was utilized for local anesthesia. 1% lidocaine with epinephrine was used for deep anesthesia. A 10G vacuum-assisted biopsy gun needle was advanced through to the outer edge of the region of inter est from a lateral approach utilizing sonographic guidance. A total of 4 tissue core samples were ob tained through the lesion. An Inrad tissue marker clip was then placed at the biopsy site. Hemostasi s was achieved. The patient tolerated procedure well and there was no evidence of immediate complication. The patien t was given verbal instructions partly is from the department. Left breast mammograms to document ti ssue marker clip placement. The tissue samples were submitted to surgical pathology for histologic an alysis. IMPRESSION: 1. Successful ultrasound-guided vacuum-assisted biopsy of left breast mass with post procedure mammo gram for marker placement. Please refer to pathology report for histologic analysis. Reviewed, dictated and finalized at location B. ATIONS RECRUITER IMPRESSION: 1. Successful ultrasound-guided vacuum-assisted biopsy of left breast mass wit h post procedure mammogram for marker placement. Please refer to pathology repo rt for histologic analysis.
== END 2024-06-26 08:06 | disposition home or self-care (01) ==
LOC: ANHIMG 08:06
PROVIDERS: PCP Family Medicine; Visit Provider Obstetrics & Gynecology
DX: N60.02 Solitary cyst of left breast (principal)
CPT/HCPCS: 19083; 77065; 88305; A4648

== ENCOUNTER 2024-12-01 08:07 | Outpatient (CLI) | payer OTHER, SELFPAY ==
--- NOTE | ~2024-12-01 | MM_ITS ---
EXAMINATION: MM screening shan BI w eber HISTORY: Screening TECHNIQUE: Craniocaudal and mediolateral oblique 3-D tomosynthesis images were obtained and synthetic 2-D images were generated. CAD analysis was submitted and interpreted. COMPARISON: Comparison to multiple prior studies sequentially, with oldest reviewed study dated 03/14. BREAST PARENCHYMAL COMPOSITION: The breasts are heterogeneously dense, which may obscure small masses . FINDINGS: There is no evidence of suspicious mass, calcification, or architectural distortion to sug gest malignancy in either breast. Scattered benign-appearing calcifications are present. Biopsy clip seen in the left breast. IMPRESSION: 1. No mammographic evidence of malignancy. 2. Recommend routine screening mammography in one year. BI-RADS Category 2: Benign finding(s). Reviewed, dictated and finalized at location B.
== END 2024-12-01 08:08 | disposition home or self-care (01) ==
LOC: ANHIMG 08:09
PROVIDERS: PCP Family Medicine; Visit Provider Obstetrics & Gynecology
DX: Z12.31 Encounter for screening mammogram for malignant neoplasm of breast (principal)
CPT/HCPCS: 77063; 77067